=== PATIENT | male | born 2000 | race Caucasian/White ===

== ENCOUNTER → 2018-04-13 | Outpatient (CLI) | payer SELFPAY | LOC: OD 09:53 | PROVIDERS: ATTEND Physician Assistant Medical | DX: E03.9 Hypothyroidism, unspecified (principal) | CPT/HCPCS: 36415; 84436; 84443 ==

== ENCOUNTER 2019-11-05 17:34 | Emergency (ER) | payer BC ==
--- NOTE | 2019-11-05 18:43 | ER Document Report ---
ED Medical Screen (RME) - General Chief Complaint: Eye Problem Stated Complaint: PAIN BEHIND EYE/LIGHT SENSITIVITY/DIZZY Time Seen by Provider: 11/05/19 18:28 Primary Care Provider: DUY BRITO PA-C [Primary Care Provider] - Follow up as needed Mode of Arrival: Ambulatory Information source: Patient Notes: Pt with c/o pain behind bilateral eyes. Denies any injury. No obvious abnormality on exam. I have greeted and performed a rapid initial assessment of this patient. A comprehensive ED assessment and evaluation of the patient, analysis of test results and completion of the medical decision making process will be conducted by additional ED providers. I have specifically instructed the patient or family members with the patient to immediately return to any nursing staff should anything change in the patient's condition or with their chief complaint. TRAVEL OUTSIDE OF THE [place] IN LAST 30 DAYS: No Physical Exam - Vital signs Vitals: Temp Pulse Resp BP Pulse Ox 98.4 F 67 16 130/65 H 99 11/05/19 18:07 11/05/19 18:07 11/05/19 18:07 11/05/19 18:07 11/05/19 18:07 Course - Vital Signs Vital signs: Temp Pulse Resp BP Pulse Ox 98.4 F 67 16 130/65 H 99 11/05/19 18:07 11/05/19 18:07 11/05/19 18:07 11/05/19 18:07 11/05/19 18:07 Doctor's Discharge - Discharge Referrals: DUY BRITO PA-C [Primary Care Provider] - Follow up as needed
[2019-11-05] MEDS ORDERED: TETRACAINE HCL 0.5% OPH SOLN 4 ML OD ONE (20:23)
--- NOTE | 2019-11-05 20:57 | ER Document Report ---
ED Eye Complaint - General Chief Complaint: Eye Pain Stated Complaint: PAIN BEHIND EYE/LIGHT SENSITIVITY/DIZZY Time Seen by Provider: 11/05/19 18:28 Primary Care Provider: ELODIA WADE MD [ACTIVE STAFF] - Follow up as needed UDY BRITO PA-C [ALLIED HEALTH PROFESSIONAL] - Follow up as needed Mode of Arrival: Ambulatory Information source: Patient Notes: 19-year-old man presents to the emergency department with a complaint of bilateral eye pain/irritation and light sensitivity. He states that the symptoms began approximately 3 days ago. He has noted some mucousy drainage from the left. Apparently has been rubbing his eyes. He has been wearing glasses for about 10 years has not had eye exam in 2 years. He has been using ibuprofen and aspirin for pain. TRAVEL OUTSIDE OF THE [place] IN LAST 30 DAYS: No - Related Data Allergies/Adverse Reactions: No Known Allergies Allergy (Verified 11/05/19 20:29) Home Medications: Levothyroxine Past Medical History - General Information source: Patient - Social History Smoking Status: Never Smoker Frequency of alcohol use: None Drug Abuse: None Family History: Reviewed & Not Pertinent Patient has suicidal ideation: No Patient has homicidal ideation: No Review of Systems - Review of Systems Notes: Constitutional: Negative for fever. HENT: Negative for sore throat. Eyes: + Bilateral eye pain, no visual changes,. Cardiovascular: Negative for chest pain. Respiratory: Negative for shortness of breath. Gastrointestinal: Negative for abdominal pain, vomiting or diarrhea. Genitourinary: Negative for dysuria. Musculoskeletal: Negative for back pain. Skin: Negative for rash. Neurological: Negative for headaches, weakness or numbness. 10 point ROS negative except as marked above and in HPI. Physical Exam - Vital signs Vitals: Temp Pulse Resp BP Pulse Ox 98.4 F 67 16 130/65 H 99 11/05/19 18:07 11/05/19 18:07 11/05/19 18:11/05/19 18:11/05/19 18:07 - Notes Notes: PHYSICAL EXAMINATION: Physical Exam: General: Well-nourished well-developed in no acute distress HEENT: NC/AT, pupils equal round and reactive to light, normal upper and lower lids bilaterally, conjunctivae mildly injected bilaterally, fluorescein stain, plus uptake in the lower pole of the cornea left and right side. Extraocular motions are intact, visual acuity is intact Neck: supple, no adenopathy, no masses. Lungs: clear, no wheezing, no rales no rhonchi CVS: Regular rate and rhythm no murmur gallop or rub Abdomen: Soft active nontender, no masses, no hepatosplenomegaly Ext: No edema clubbing or cyanosis. Neuro: Alert and responsive, moving all 4 extremities on command, cranial nerves intact. Skin: Intact no open lesions, no rash PSYCH: Normal mood, normal affect. Course - Re-evaluation Re-evalutation: 11/05/19 20:55 Given the uptake of fluorescein, patient will be treated corneal abrasion and risk for infection. I have asked him to use ibuprofen for Polytrim eyedrops are given in the emergency department. He is instructed to follow-up with the e learning specialist on Thursday for recheck. Patient is in agreement with this plan and will be discharged. - Vital Signs Vital signs: Temp Pulse Resp BP Pulse Ox 98.2 F 72 18 129/82 H 98 11/05/19 22:07 11/05/19 22:07 11/05/19 22:07 11/05/19 22:07 11/05/19 22:07 Discharge - Discharge Clinical Impression: Corneal abrasion of both eyes Qualifiers: Encounter type: initial encounter Qualified Code(s): S05.01XA - Injury of conjunctiva and corneal abrasion without foreign body, right eye, initial encounter Condition: Good Disposition: HOME, SELF-CARE Instructions: Corneal Abrasion ([facility]), Eyedrop Use ([facility]) Additional Instructions: You are diagnosed with bilateral corneal abrasions and emergency department tonight, please use medications as prescribed, use ibuprofen for pain may alternate with Tylenol. Follow-up with the e learning specialist on Thursday call for appointment. Prescriptions: Ketorolac Tromethamine 0.45% [Acuvail 0.45% Oph Soln 0.4 ml/Dropperette] 1 drop OU BID #10 droperette Referrals: DUY BRITO PA-C [ALLIED HEALTH PROFESSIONAL] - Follow up as needed ELODIA WADE MD [ACTIVE STAFF] - Follow up as needed
[2019-11-05] MEDS ORDERED: POLYMYXIN B SULFATE/TMP OPH SOLN 10 ML OS ONE (21:03)
[2019-11-05] MEDS ORDERED: POLYMYXIN B SULFATE/TMP OPH SOLN 10 ML ONE (22:01)
[2019-11-05 22:08] VITALS: BP 129/82
== END 2019-11-05 22:08 | disposition home or self-care (01) ==
LOC: ER 17:34
DX: S05.01XA Injury of conjunctiva and corneal abrasion without foreign body, right eye, initial encounter (principal); H57.13 Ocular pain, bilateral; R09.89 Other specified symptoms and signs involving the circulatory and respiratory systems; X58.XXXA Exposure to other specified factors, initial encounter; Z79.899 Other long term (current) drug therapy
CPT/HCPCS: 99283; J3490 ×2